=== PATIENT | female | born 1975 | race Caucasian/White ===

== ENCOUNTER 2021-01-10 13:30 | Emergency (ER) | payer OTHER ==
[~2021-01-10] VITALS: Ht 157.5 cm; Wt 107.5 kg
[~2021-01-10 13:30] MED LIST: NAPROSYN500 MG PO
[2021-01-10] MEDS ORDERED: BENADRYL25 MG PO (17:14)
[2021-01-10] MEDS ORDERED: PREDNISONE 20 M20 MG PO (17:14)
[2021-01-10] MEDS ORDERED: PEPCID AC20 MG PO (17:14)
[2021-01-10 17:21] VITALS: BP 128/82
== END 2021-01-10 17:33 | disposition home or self-care (01) ==
LOC: ER 13:30
DX: R21 Rash and other nonspecific skin eruption (principal); T78.40XA Allergy, unspecified, initial encounter; Y92.89 Other specified places as the place of occurrence of the external cause